=== PATIENT | male | born 1980 | race Caucasian/White ===

== ENCOUNTER 2020-01-13 17:12 | Inpatient (IN) | payer BC ==
[~2020-01-13] VITALS: Ht 172.7 cm; Wt 83.2 kg
[2020-01-13 17:49] LABS: BASOPHILS 2.4 % (0-2); EOSINOPHILS 0 % (0-7); HEMATOCRIT 45.1 % (42.0-54.0); HEMOGLOBIN 14.8 g/dL (13.5-17.5); IMMATURE GRANULOCYTES 1.1 % (0-5); LYMPHOCYTES 26.6 % (15-50); MCH 28.9 pg (26.0-34.0); MCHC 32.8 g/dL (31.0-37.0); MCV 88.1 fL (80.0-100.0); MEAN PLATELET VOLUME 10.2 fL (7.4-10.4); MONOCYTES 12.4 % (2-11); NEUTROPHILS 57.5 % (40-80); PLATELET COUNT 336 10x3/uL (130-400); RBC 5.12 10x6/uL (4.20-6.10); RDW 15.4 % (11.5-14.5); WBC 6.4 10x3/uL (4.8-10.8)
[2020-01-13 17:57] LABS: CALC OSMOLALITY 272 mosm/kg (275-300); CALCIUM 8.8 mg/dL (8.5-10.1); CARBON DIOXIDE 26.3 mmol/L (21.0-32.0); CHLORIDE - SERUM 102 mmol/L (98-107); CREATININE - SERUM 1.4 mg/dL (0.6-1.3); GLUCOSE 91 mg/dL (74-106); POTASSIUM - SERUM 3.6 mmol/L (3.5-5.1); SODIUM 135 mmol/L (136-145); UREA NITROGEN 20 mg/dL (7-18); eGFR NON AFRICAN AMERICAN 60 mL/min (90-120)
[2020-01-13 18:13] LABS: ALBUMIN 2.6 g/dL (3.4-5.0); ALKALINE PHOSPHATASE 722 U/L (30-120); ALT (SGPT) 779 U/L (10-68); AMYLASE - SERUM 165 U/L (25-115); CKMB 0.6 U/L (0.0-3.6); CREATINE KINASE 56 UL (21-232); TROPONIN-I < 0.017 ng/mL (0.000-0.060)
[2020-01-13 18:19] LABS: BILIRUBIN - TOTAL 26.41 mg/dL (0.2-1.3); LIPASE 1607 U/L (73-393); PROTEIN - SERUM 6.4 g/dL (6.4-8.2)
[2020-01-13 18:40] LABS: GLUCOSE NEGATIVE (NEGATIVE); KETONE NEGATIVE (NEGATIVE); NITRITE NEGATIVE (NEGATIVE); UROBILINOGEN NORMAL (NORMAL)
[2020-01-13 18:41] LABS: BILIRUBIN 2+ (NEGATIVE)
[2020-01-13 18:45] LABS: UDS - AMPHET NEGATIVE QUAL (NEGATIVE); UDS - BARB NEGATIVE QUAL (NEGATIVE); UDS - BENZO NEGATIVE QUAL (NEGATIVE); UDS - COCAINE NEGATIVE QUAL (NEGATIVE); UDS - OPIATE POSITIVE QUAL (NEGATIVE); UDS - PCP NEGATIVE QUAL (NEGATIVE); UDS - THC NEGATIVE QUAL (NEGATIVE)
[2020-01-13 19:11] VITALS: BP 134/80
--- NOTE | 2020-01-13 23:55 | NUR ---
PT ARRIVED TO ROOM VIA W/C. EDUCATED ON USE OF CALL LIGHT FOR ASSIASTANCE. NO S/SX OF DISTRESS OBSERVED. WILL CPOC.
--- NOTE | 2020-01-14 02:00 | NUR ---
PT VOICES NO C/O OR CONCERNS. NPO FOR US IN AM. WILL CPOC.
[2020-01-14 04:30] VITALS: BP 129/80
[2020-01-14 04:34] VITALS: BP 138/85; Ht 172.7 cm; Wt 83.2 kg
[2020-01-14 04:54] LABS: BASOPHILS 2.1 % (0-2); EOSINOPHILS 0 % (0-7); HEMATOCRIT 40.8 % (42.0-54.0); HEMOGLOBIN 13.3 g/dL (13.5-17.5); IMMATURE GRANULOCYTES 1.1 % (0-5); LYMPHOCYTES 27.2 % (15-50); MCH 28.7 pg (26.0-34.0); MCHC 32.6 g/dL (31.0-37.0); MCV 87.9 fL (80.0-100.0); MEAN PLATELET VOLUME 10.9 fL (7.4-10.4); MONOCYTES 11.1 % (2-11); NEUTROPHILS 58.5 % (40-80); PLATELET COUNT 289 10x3/uL (130-400); RBC 4.64 10x6/uL (4.20-6.10); RDW 15.5 % (11.5-14.5); WBC 6.3 10x3/uL (4.8-10.8)
[2020-01-14 05:04] LABS: APTT 29.9 SECONDS (22.8-39.4); INR 1.04 (0.85-1.17); PROTIME 13.5 SECONDS (11.6-15.0)
[2020-01-14 05:05] LABS: D-DIMER-QUANTITATIVE 0.48 ug/mLFEU (0.20-0.54)
[2020-01-14 05:15] LABS: ALBUMIN 2.3 g/dL (3.4-5.0); ALKALINE PHOSPHATASE 619 U/L (30-120); ALT (SGPT) 643 U/L (10-68); AMYLASE - SERUM 149 U/L (25-115); BILIRUBIN - TOTAL 21.65 mg/dL (0.2-1.3); CALC OSMOLALITY 270 mosm/kg (275-300); CALCIUM 8.5 mg/dL (8.5-10.1); CARBON DIOXIDE 24.2 mmol/L (21.0-32.0); CHLORIDE - SERUM 104 mmol/L (98-107); CREATININE - SERUM 1.1 mg/dL (0.6-1.3); GLUCOSE 87 mg/dL (74-106); LIPASE 1393 U/L (73-393); MAGNESIUM - SERUM 1.9 mg/dL (1.8-2.4); PHOSPHOROUS 3.1 mg/dL (2.5-4.9); PRO BNP 27 pg/mL (0-125); PROTEIN - SERUM 5.4 g/dL (6.4-8.2); SODIUM 135 mmol/L (136-145); UREA NITROGEN 18 mg/dL (7-18); eGFR NON AFRICAN AMERICAN 79 mL/min (90-120)
--- NOTE | 2020-01-14 07:33 | NUR ---
PT SITTING UP IN BED, RR EVEN AND UNLABORED ON RA. DENIES NEEDS OR PAIN AT THIS TIME. CALL LIGHT WITHIN REACH. BED IN LOWEST POSITION. ULTRASOUND AT BEDSIDE. WATER RECIEVED PER REQUEST. WILL CONTINUE TO MONITOR.
[2020-01-14 09:47] VITALS: BP 135/85
[2020-01-14 13:10] VITALS: BP 117/68
[2020-01-14 17:59] VITALS: BP 121/64
--- NOTE | 2020-01-14 19:10 | NUR ---
REPORT RECEIVED. BEDSIDE SHIFT REPORT COMPLETE. PT UP IN BED WATCHING TV. RR EVEN AND UNLABORED. NO S/SX OF DISTRESS OBSERVED. DENIES NEEDS AT THIS TIME. CALL LIGHT IN REACH. WILL CPOC.
[2020-01-14 20:30] VITALS: BP 112/68
[2020-01-15 00:30] VITALS: BP 123/69
[2020-01-15 04:25] VITALS: BP 111/69
[2020-01-15 04:59] LABS: BASOPHILS 2.4 % (0-2); EOSINOPHILS 0 % (0-7); HEMATOCRIT 43.6 % (42.0-54.0); IMMATURE GRANULOCYTES 1.2 % (0-5); LYMPHOCYTES 25.9 % (15-50); MCH 28.6 pg (26.0-34.0); MCHC 32.1 g/dL (31.0-37.0); MEAN PLATELET VOLUME 10.7 fL (7.4-10.4); MONOCYTES 9.6 % (2-11); NEUTROPHILS 60.9 % (40-80); RDW 15.5 % (11.5-14.5); WBC 5.9 10x3/uL (4.8-10.8)
[2020-01-15 05:06] LABS: PLATELET COUNT 388 10x3/uL (130-400)
[2020-01-15 05:21] LABS: ALBUMIN 2.6 g/dL (3.4-5.0); ALKALINE PHOSPHATASE 650 U/L (30-120); ALT (SGPT) 665 U/L (10-68); BILIRUBIN - TOTAL 22.93 mg/dL (0.2-1.3); CALCIUM 8.7 mg/dL (8.5-10.1); CARBON DIOXIDE 24.9 mmol/L (21.0-32.0); CHLORIDE - SERUM 102 mmol/L (98-107); GLUCOSE 127 mg/dL (74-106); MAGNESIUM - SERUM 1.8 mg/dL (1.8-2.4); PHOSPHOROUS 3.3 mg/dL (2.5-4.9); POTASSIUM - SERUM 3.8 mmol/L (3.5-5.1); SODIUM 135 mmol/L (136-145); eGFR NON AFRICAN AMERICAN 89 mL/min (90-120)
[2020-01-15 05:27] LABS: CALC OSMOLALITY 271 mosm/kg (275-300); UREA NITROGEN 13 mg/dL (7-18)
--- NOTE | 2020-01-15 07:38 | NUR ---
PT RESTING, RR EVEN AND UNLABORED. DENIES NEEDS OR PAIN AT THIS TIME. CALL LIGHT WITHIN REACH. BED IN LOWEST POSITION. WILL CONTINUE TO MONITOR.
[2020-01-15 09:24] VITALS: BP 127/68
[2020-01-15 12:10] VITALS: BP 137/71
[2020-01-15] MEDS ORDERED: QUESTRAN LIG1 PACKET PO (14:14)
--- NOTE | 2020-01-15 14:55 | MORECARE ---
CASE MANAGEMENT DISCHARGE SUMMARY PATIENT: DOLORES ELIAS UNIT: [id number] ADM DATE: 01/14/20 AGE: 39 : [birth year] SEX: M ROOM/BED: D.2103 AUTHOR: TYRELDOC PHYSICIAN: REFERRING PHYSICIAN: TAMERA FIGUEROA DO DATE OF SERVICE: 01/15/20 Discharge Plan Patient Name: DOLORES ELIAS Facility: [facility]:[place] : 1980 Planned Disposition: Home Anticipated Discharge Date: 01/16/20 Discharge Date: Expected LOS: 2 Initial Reviewer: [email or web address] Initial Review Date: 01/15/2020 Generated: 01/15/20 3:55 pm Comments DCP- Discharge Planning Updated by [email or web address]: Dennise Proctor on 01/15/20 1:[address] Patient Name: DOLORES ELIAS Admission Status: ER Accout number: [id number] Admission Date: 01-14-2020 : 1980 Admission Diagnosis: Attending: TAMERA FIGUEROA Current LOS: 1 Anticipated DC Date: 01-16-2020 Planned Disposition: Home Primary Insurance: BLUE CROSS TRUE BLUE PPO Discharge Planning Comments: CM received discharge notice. He states he lives with his spouse. States he is independent with all ADL's and IADL's. States his is taking him home at discharge. States he has no DME or need any DME. No needs identified. Manpower Development Manager: Dennise Proctor DCPIA - Discharge Planning Initial Assessment Updated by [email or web address]: Dennise Proctor on 01/15/20 2:53 pm * Is the patient Alert and Oriented? Yes * How many steps to enter\exit or inside your home? 4-5/0 * PCP Dr. Chaudhary * Pharmacy [facility] in [place] * Preadmission Environment Home with Family * ADLs Independent * Equipment None * List name and contact numbers for known caregivers / representatives who currently or will assist patient after discharge: Tracy Elias - spouse - [phone] * Verbal permission to speak to the caregivers and representatives has been obtained from the patient. Yes * Community resources currently utilized None * Additional services required to return to the preadmission environment? No * Can the patient safely return to the preadmission environment? Yes * Has this patient been hospitalized within the prior 30 days at any hospital? No Patient Name: DOLORES ELIAS Page [id number] at 1455 All edits/amendments must be made on the electronic document DICTATION DATE: 01/15/201454 DRY CANS BACK TENDER: YUDELKA 01/15/201454 RPT#: [id number] DC DATE: STATUS: ADM IN [facility] [address] [place] [address] END OF REPORT
--- NOTE | 2020-01-15 14:58 | NUR ---
I have reviewed this patient and I concur with the Shift Assessment completed by the Licensed Practical Nurse today this shift.
--- NOTE | 2020-01-15 15:38 | NUR ---
IV D/C WITH CATHETER TIP INTACT. D/C INSTRUCTIONS REVIEWED WITH PT AND VERBALIZED UNDERSTANDING. LEFT WITH ALL BELONGINGS VIA WHEELCHAIR.
--- NOTE | 2020-01-16 08:03 | MORECARE ---
CASE MANAGEMENT DISCHARGE SUMMARY PATIENT: DOLORES ELIAS UNIT: [id number] ADM DATE: 01/14/20 AGE: 39 : 82 SEX: M ROOM/BED: D.2103 AUTHOR: TYRELDOC PHYSICIAN: REFERRING PHYSICIAN: TAMERA FIGUEROA DO DATE OF SERVICE: 01/16/20 Discharge Plan Patient Name: DOLORES ELIAS Facility: [facility]:[place] : 1980 Planned Disposition: Home Anticipated Discharge Date: 01/16/20 Discharge Date: 01/15/2020 Expected LOS: 2 Initial Reviewer: [email or web address] Initial Review Date: 01/15/2020 Generated: 01/16/20 9:02 am Comments DCP- Discharge Planning Updated by [email or web address]: Dennise Proctor on 01/15/20 1:[address] Patient Name: DOLORES ELIAS Admission Status: ER Accout number: [id number] Admission Date: 01-14-2020 : 1980 Admission Diagnosis: Attending: TAMERA FIGUEROA Current LOS: 1 Anticipated DC Date: 01-16-2020 Planned Disposition: Home Primary Insurance: BLUE CROSS TRUE BLUE PPO Discharge Planning Comments: CM received discharge notice. He states he lives with his spouse. States he is independent with all ADL's and IADL's. States his is taking him home at discharge. States he has no DME or need any DME. No needs identified. Boat Canvas Installer: Dennise Proctor DCPIA - Discharge Planning Initial Assessment Updated by [email or web address]: Dennise Proctor on 01/15/20 2:53 pm * Is the patient Alert and Oriented? Yes * How many steps to enter\exit or inside your home? 4-5/0 * PCP Dr. Chaudhary * Pharmacy [facility] in [place] * Preadmission Environment Home with Family * ADLs Independent * Equipment None * List name and contact numbers for known caregivers / representatives who currently or will assist patient after discharge: Tracy Elias - spouse - [phone] * Verbal permission to speak to the caregivers and representatives has been obtained from the patient. Yes * Community resources currently utilized None * Additional services required to return to the preadmission environment? No * Can the patient safely return to the preadmission environment? Yes * Has this patient been hospitalized within the prior 30 days at any hospital? No Last DP export: 01/15/20 1:55 p Patient Name: DOLORES ELIAS Page [id number] at 0803 All edits/amendments must be made on the electronic document DICTATION DATE: 01/16/20802 FLAT FOLDING MACHINE OPERATOR: YUDELKA 01/16/20802 RPT#: [id number] DC DATE:01/15/20 STATUS: DIS IN [facility] [address] [place] [address] END OF REPORT
== END 2020-01-15 15:47 | disposition home or self-care (01) | DRG 442 ==
LOC: D.ER 17:12 → OBSVTIME 22:03 → D.M2 22:03
PROVIDERS: Family Medicine; Internal Medicine Gastroenterology; ADMIT Family Medicine; ATTEND Family Medicine
DX: R17 Unspecified jaundice (principal); N17.9 Acute kidney failure, unspecified; K51.90 Ulcerative colitis, unspecified, without complications; E87.1 Hypo-osmolality and hyponatremia

== ENCOUNTER → 2020-01-25 10:21 | Outpatient (CLI) | payer BC ==
[2020-01-14 04:34] VITALS: BMI 27.8
[~2020-01-25 10:21] MED LIST: QUESTRAN LIG1 PACKET PO
== END | disposition home or self-care (01) ==
LOC: D.MRI 10:21
PROVIDERS: ATTEND Clinical Nurse Specialist Adult Health
DX: R10.9 Unspecified abdominal pain (principal)

== ENCOUNTER 2020-02-14 06:39 | Outpatient (CLI) | payer BC ==
[~2020-02-14] VITALS: Ht 172.7 cm; Wt 81.8 kg
[2020-02-14 07:12] LABS: APTT 28.3 SECONDS (22.8-39.4); INR 0.98 (0.85-1.17); PROTIME 12.9 SECONDS (11.6-15.0)
[2020-02-14 07:17] LABS: ALBUMIN 2.7 g/dL (3.4-5.0); ALKALINE PHOSPHATASE 419 U/L (30-120); BILIRUBIN - TOTAL 18.64 mg/dL (0.2-1.3); CALC OSMOLALITY 268 mosm/kg (275-300); CALCIUM 9.5 mg/dL (8.5-10.1); CARBON DIOXIDE 27.4 mmol/L (21.0-32.0); CHLORIDE - SERUM 98 mmol/L (98-107); CREATININE - SERUM 1.1 mg/dL (0.6-1.3); GLUCOSE 113 mg/dL (74-106); POTASSIUM - SERUM 3.3 mmol/L (3.5-5.1); SODIUM 133 mmol/L (136-145); UREA NITROGEN 17 mg/dL (7-18); eGFR NON AFRICAN AMERICAN 79 mL/min (90-120)
[2020-02-14 07:30] LABS: ALT (SGPT) 213 U/L (10-68)
[2020-02-14] MEDS ORDERED: AMITRIPTYLINE100 MG PO (07:34)
[2020-02-14] MEDS ORDERED: URSO250 MG PO (07:34)
[2020-02-14 07:36] VITALS: BP 134/84; Ht 172.7 cm; Wt 81.8 kg
[2020-02-14 07:50] LABS: EOSINOPHILS 0.1 % (0-7); HEMOGLOBIN 13.1 g/dL (13.5-17.5); IMMATURE GRANULOCYTES 2.2 % (0-5); LYMPHOCYTES 16.3 % (15-50); MCH 29.7 pg (26.0-34.0); MCHC 32.8 g/dL (31.0-37.0); MCV 90.7 fL (80.0-100.0); MEAN PLATELET VOLUME 10.8 fL (7.4-10.4); MONOCYTES 9.6 % (2-11); NEUTROPHILS 70.8 % (40-80); RBC 4.41 10x6/uL (4.20-6.10); RDW 19.6 % (11.5-14.5)
[2020-02-14 07:52] LABS: PLATELET COUNT 220 10x3/uL (130-400)
--- NOTE | 2020-02-14 11:31 | NUR ---
1115 PT RETURNED TO 2506 AT SIDE, LAYING ON RIGHT SIDE, EXPLAINED TO REMAIN ON LEFT SIDE FOR 2 HOURS, WATER SERVED.
== END 2020-02-14 15:05 | disposition home or self-care (01) ==
LOC: D.SP 06:39 → D.CT 06:39 → D.SP 15:05
PROVIDERS: General Practice; ATTEND Family Medicine
DX: K51.30 Ulcerative (chronic) rectosigmoiditis without complications (principal); E80.6 Other disorders of bilirubin metabolism; L28.2 Other prurigo; E78.5 Hyperlipidemia, unspecified; R89.9 Unspecified abnormal finding in specimens from other organs, systems and tissues